=== PATIENT | female | born 1985 | race African-American/Black ===

== ENCOUNTER → 2017-07-05 | Day surgery (SDC) | payer MEDICAID ==
[~2017-07-05] VITALS: Ht 180.3 cm; Wt 78.8 kg
[~2017-07-05] MED LIST: ACETYLCHOLINE CHLORIDE INTRAOCULAR SOLUTION 1:100 ELECTROLYTE DILUENT IO ONE; AMLO10TA4 PO; BALANCED SALT IRRIG SOLN 15ML ONE; BALANCED SALT IRRIG SOLN COMB1 500ML OP SCH; BENA40TA3 PO; CALC667T2 PO; CLON0.2T PO; CYCLOPENTOLATE HCL 1% OPHTH DROPS 2ML ONE; CYCLOPENTOLATE HCL 2% OPHTH DROPS 2ML LEFTEYE SCH; DEXAMETHASONE 4MG/ML 1ML VIAL ONE; DIPH50DI3 IVP; DOCU-150 PO; FOLI0.8T23 PO; HEPARIN 5000 UNITS/ML VIAL IV SCH; HYALURONATE SODIUM 14 MG/ML 0.85ML SYRINGE IO ONE; HYDR-3927 PO; HYDR100T26 PO; HYDRALAZINE 20MG/ML VIAL IV SCH; IBUP-2028 PO; ISOS60TA4 PO; ISOSORBIDE MONONITRATE 60MG TABLET SR 24HR PO SCH; LIDOCAINE HCL/PF 2% 20 MG/ML 10ML VIAL ONE; MEPERIDINE HCL/PF 25MG/ML CPJ IV PRN; METO-411 PO; METOCLOPRAMIDE HCL 5MG TABLET PO NR; MORP2SYR IV; NEO/POLYMYX B SULF/DEXAMETH OPHTH OINT 3.5GM ONE; NIFE60TA64 PO; NIFEDIPINE XL 60MG TAB PO NR; OMEP20CA10 PO; OMEPRAZOLE 20MG CAPSULE EXTENDED RELEASE PO NR; ONDANSETRON HCL 4MG TABLET PO NR; ONDANSETRON HCL 4MG/2ML VIAL IV PRN; ONDANSETRON HCL 4MG/2ML VIAL ONE; P50 PO; PHENYLEPHRINE HCL 10% OPHTH DROPS 5ML LEFTEYE SCH; PHENYLEPHRINE HCL 10% OPHTH DROPS 5ML ONE; PREDNISOLONE ACETATE 1% OPHTH DROPS 1ML ONE; TETRACAINE 0.5% OPHTH DROPS 4ML ONE; TRIAMCINOLONE ACETONIDE 40MG/ML 1ML VIAL ONE; TROPICAMIDE 1% OPHTH DROPS 15ML LEFTEYE SCH; TROPICAMIDE 1% OPHTH DROPS 15ML ONE; TRYPAN BLUE 0.5 ML DISP.SYRIN IO ONE
[2017-07-05 06:56] LABS: HEMOGLOBIN. 7.8 g/dL (12.0-16.0); MEAN CORPUSCULAR VOLUME 89.3 fL (81.0-99.0); MEAN PLATELET VOLUME 7.5 fl (7.4-10.4); PLATELET 142 x1000/uL (130-400); RED BLOOD CELL COUNT 2.69 mill/uL (4.2-5.4); RED CELL DISTRIBUTION WIDTH 17.4 % (11.6-14.6)
[2017-07-05 07:06] LABS: HCG SCREEN NEGATIVE
[2017-07-05] MEDS: HYDROMORPHONE HCL/PF 2MG/ML CPJ IV PRN ×2 (10:04→11:48)
[2017-07-05 11:33] LABS: PLATELET ESTIMATE NORMAL
[2017-07-05 11:48] VITALS: BP 190/102
== END | disposition home or self-care (01) ==
LOC: OR 05:29
PROVIDERS: ATTEND Ophthalmology
DX: H25.22 Age-related cataract, morgagnian type, left eye (principal); J44.9 Chronic obstructive pulmonary disease, unspecified; I13.2 Hypertensive heart and chronic kidney disease with heart failure and with stage 5 chronic kidney disease, or end stage renal disease; N18.6 End stage renal disease; I50.9 Heart failure, unspecified; Z99.2 Dependence on renal dialysis
CPT/HCPCS: 36415; 66984; 80048; 84703; 85025; J0360; J1100; J1170; J1644; J2405; J3490; J7040; Q0162; Q9957; V2632; J3301; J8597

== ENCOUNTER → 2018-03-04 | Day surgery (SDC) | payer MEDICAID ==
[~2018-03-04] VITALS: Ht 180.3 cm; Wt 81.6 kg
[~2018-03-04] MED LIST changes: +BALANCED SALT IRRIG SOLN COMB1 500ML OP ONE; -BALANCED SALT IRRIG SOLN COMB1 500ML OP SCH; +BUPIVACAINE HCL/PF 0.75% (7.5MG/ML) 10ML ONE; +CIPROFLOXACIN 0.3% OPHTH SOLN 2.5ML ONE; +CYCLOPENTOLATE HCL 1% OPHTH DROPS 2ML RIGHTEYE SCH; -CYCLOPENTOLATE HCL 2% OPHTH DROPS 2ML LEFTEYE SCH; +FENTANYL CITRATE/PF 50MCG/ML 2ML VIAL ONE; -HEPARIN 5000 UNITS/ML VIAL IV SCH; +HEPARIN SODIUM 1,000 UNIT/1ML VIAL IV NR; -HYDRALAZINE 20MG/ML VIAL IV SCH; +HYDROMORPHONE HCL/PF 2MG/ML CPJ IV PRN; -ISOSORBIDE MONONITRATE 60MG TABLET SR 24HR PO SCH; +LABETALOL 5MG/ML SYR 20 MG/4 ML SYRINGE IV PRN; +LACTATED RINGERS 1,000 ML IV SCH; +LIDOCAINE HCL 2%/EPINEPHRINE 1:100,000 20 ML VIAL INFIL ONE; -LIDOCAINE HCL/PF 2% 20 MG/ML 10ML VIAL ONE; -METOCLOPRAMIDE HCL 5MG TABLET PO NR; +MIDAZOLAM HCL 2 MG/2 ML VIAL ONE; -NIFEDIPINE XL 60MG TAB PO NR; -OMEPRAZOLE 20MG CAPSULE EXTENDED RELEASE PO NR; -ONDANSETRON HCL 4MG TABLET PO NR; -PHENYLEPHRINE HCL 10% OPHTH DROPS 5ML LEFTEYE SCH; +PHENYLEPHRINE HCL 10% OPHTH DROPS 5ML RIGHTEYE SCH; +PROPOFOL 200MG/20ML VIAL IV ONE; -TRIAMCINOLONE ACETONIDE 40MG/ML 1ML VIAL ONE; -TROPICAMIDE 1% OPHTH DROPS 15ML LEFTEYE SCH; +TROPICAMIDE 1% OPHTH DROPS 15ML RIGHTEYE SCH
== END ==
LOC: OR 08:14
PROVIDERS: ATTEND Ophthalmology
DX: H25.21 Age-related cataract, morgagnian type, right eye (principal); I13.2 Hypertensive heart and chronic kidney disease with heart failure and with stage 5 chronic kidney disease, or end stage renal disease; N18.6 End stage renal disease; Z99.2 Dependence on renal dialysis; I50.9 Heart failure, unspecified; Z79.899 Other long term (current) drug therapy; J44.9 Chronic obstructive pulmonary disease, unspecified
CPT/HCPCS: 66982; J1100; J1644; J2250; J2405; J3010; J3490; J7040; Q9957; V2632; J2704

== ENCOUNTER 2018-03-13 19:48 | Emergency (ER) | payer MEDICAID ==
[~2018-03-13] VITALS: Ht 180.3 cm; Wt 83.0 kg
[~2018-03-13 19:48] MED LIST changes: -ACETYLCHOLINE CHLORIDE INTRAOCULAR SOLUTION 1:100 ELECTROLYTE DILUENT IO ONE; -BALANCED SALT IRRIG SOLN 15ML ONE; -BALANCED SALT IRRIG SOLN COMB1 500ML OP ONE; -BUPIVACAINE HCL/PF 0.75% (7.5MG/ML) 10ML ONE; -CIPROFLOXACIN 0.3% OPHTH SOLN 2.5ML ONE; -CYCLOPENTOLATE HCL 1% OPHTH DROPS 2ML ONE; -CYCLOPENTOLATE HCL 1% OPHTH DROPS 2ML RIGHTEYE SCH; -DEXAMETHASONE 4MG/ML 1ML VIAL ONE; -FENTANYL CITRATE/PF 50MCG/ML 2ML VIAL ONE; -HEPARIN SODIUM 1,000 UNIT/1ML VIAL IV NR; -HYALURONATE SODIUM 14 MG/ML 0.85ML SYRINGE IO ONE; -HYDROMORPHONE HCL/PF 2MG/ML CPJ IV PRN; -LABETALOL 5MG/ML SYR 20 MG/4 ML SYRINGE IV PRN; -LACTATED RINGERS 1,000 ML IV SCH; -LIDOCAINE HCL 2%/EPINEPHRINE 1:100,000 20 ML VIAL INFIL ONE; -MEPERIDINE HCL/PF 25MG/ML CPJ IV PRN; -MIDAZOLAM HCL 2 MG/2 ML VIAL ONE; -NEO/POLYMYX B SULF/DEXAMETH OPHTH OINT 3.5GM ONE; -ONDANSETRON HCL 4MG/2ML VIAL IV PRN; -ONDANSETRON HCL 4MG/2ML VIAL ONE; -PHENYLEPHRINE HCL 10% OPHTH DROPS 5ML ONE; -PHENYLEPHRINE HCL 10% OPHTH DROPS 5ML RIGHTEYE SCH; -PREDNISOLONE ACETATE 1% OPHTH DROPS 1ML ONE; -PROPOFOL 200MG/20ML VIAL IV ONE; -TETRACAINE 0.5% OPHTH DROPS 4ML ONE; -TROPICAMIDE 1% OPHTH DROPS 15ML ONE; -TROPICAMIDE 1% OPHTH DROPS 15ML RIGHTEYE SCH; -TRYPAN BLUE 0.5 ML DISP.SYRIN IO ONE
[2018-03-13] MEDS ORDERED: TETRACAINE 0.5% OPHTH DROPS 4ML BOTHEYE ONE (21:30)
[2018-03-13] MEDS ORDERED: FLUORESCEIN SODIUM 1MG/STRIP BOTHEYE ONE (21:30)
[2018-03-13] MEDS ORDERED: HYDROCODONE/ACETAMINOPHEN 5/325MG TABLET PO ONE (22:00)
[2018-03-13 22:07] VITALS: BP 169/95
== END 2018-03-13 22:25 | disposition home or self-care (01) ==
LOC: ER 21:03
DX: T15.81XA Foreign body in other and multiple parts of external eye, right eye, initial encounter (principal); I13.2 Hypertensive heart and chronic kidney disease with heart failure and with stage 5 chronic kidney disease, or end stage renal disease; I50.9 Heart failure, unspecified; N18.6 End stage renal disease; M10.9 Gout, unspecified; F17.200 Nicotine dependence, unspecified, uncomplicated; E11.22 Type 2 diabetes mellitus with diabetic chronic kidney disease; Z88.0 Allergy status to penicillin; Z99.2 Dependence on renal dialysis; Y92.89 Other specified places as the place of occurrence of the external cause
CPT/HCPCS: 99284

== ENCOUNTER 2018-03-27 19:03 | Emergency (ER) | payer MEDICAID ==
[~2018-03-27] VITALS: Ht 172.7 cm; Wt 68.0 kg
[2018-03-27] MEDS ORDERED: MORPHINE SULFATE 4 MG/ML CPJ (NOT FOR IM USE) IV STA (19:56)
[2018-03-27] MEDS ORDERED: HYDRALAZINE 20MG/ML VIAL IV ONE (20:00)
[2018-03-27] MEDS ORDERED: CLONIDINE 0.2MG TABLET PO ONE (20:00)
[2018-03-27 21:07] LABS: HEMATOCRIT. 30.4 % (36.0-48.0); HEMOGLOBIN. 9.9 g/dL (12.0-16.0); LYMPHOCYTES % 18.6 % (20.0-50.0); MEAN CORPUSCULAR HEMOGLOBIN 28.1 pg (28.0-32.0); MEAN CORPUSCULAR VOLUME 86.3 fL (81.0-99.0); MEAN PLATELET VOLUME 8.4 fl (7.4-10.4); MONOCYTES % 9.1 % (2.0-8.0); NEUTROPHILS % 62.3 % (40.0-76.0); PLATELET 186 x1000/uL (130-400); RED BLOOD CELL COUNT 3.53 mill/uL (4.2-5.4)
[2018-03-27 21:11] LABS: CHLORIDE 97 mEq/L (98-107)
[2018-03-27 21:13] LABS: INR 1.1
[2018-03-27 21:15] LABS: ETHANOL BLOOD < 10 mg/dL
[2018-03-28 02:15] VITALS: BP 185/95
== END 2018-03-28 02:37 | disposition home or self-care (01) ==
LOC: ER 20:12
DX: R51 Headache (principal); Z91.14 Patient's other noncompliance with medication regimen; D64.9 Anemia, unspecified; I13.2 Hypertensive heart and chronic kidney disease with heart failure and with stage 5 chronic kidney disease, or end stage renal disease; I50.9 Heart failure, unspecified; N18.6 End stage renal disease; E11.9 Type 2 diabetes mellitus without complications; Z86.73 Personal history of transient ischemic attack (TIA), and cerebral infarction without residual deficits; Z99.2 Dependence on renal dialysis; Z88.0 Allergy status to penicillin
CPT/HCPCS: 36415; 70450; 71045; 80053; 84484; 85025; 85610; 93005; 96374; 96375; 99291; G0482; J0360; J2270; Z7610

== ENCOUNTER 2018-08-23 09:23 | Emergency (ER) | payer MEDICAID ==
[~2018-08-23] VITALS: Ht 180.3 cm; Wt 82.0 kg
[~2018-08-23 09:23] MED LIST changes: -BENA40TA3 PO; +BENA40TA9 PO
[2018-08-23 12:25] VITALS: BP 189/100
[2018-08-23] MEDS ORDERED: TETRACAINE 0.5% OPHTH DROPS 4ML RIGHTEYE ONE (12:45)
[2018-08-23] MEDS ORDERED: FLUORESCEIN SODIUM 1MG/STRIP RIGHTEYE ONE (12:45)
[2018-08-23] MEDS ORDERED: CEFTRIAXONE SODIUM 1 G/VIAL IM ONE (13:45)
== END 2018-08-23 15:20 | disposition home or self-care (01) ==
LOC: ER 10:17
DX: L03.213 Periorbital cellulitis (principal); E11.22 Type 2 diabetes mellitus with diabetic chronic kidney disease; I13.2 Hypertensive heart and chronic kidney disease with heart failure and with stage 5 chronic kidney disease, or end stage renal disease; I50.9 Heart failure, unspecified; N18.6 End stage renal disease; D63.1 Anemia in chronic kidney disease; Z86.73 Personal history of transient ischemic attack (TIA), and cerebral infarction without residual deficits; Z99.2 Dependence on renal dialysis; Z88.0 Allergy status to penicillin; Z98.41 Cataract extraction status, right eye
CPT/HCPCS: 99283